=== PATIENT | female | born 1945 | race Caucasian/White ===

== ENCOUNTER → 2023-10-14 14:10 | Outpatient (REF) | payer MEDICARE, OTHER, SELFPAY ==
[2023-10-18 01:08] LABS: Calprotectin, Fecal 76 ug/g (<=49)
== END ==
LOC: REG 14:10
PROVIDERS: ATTENDING PHYSICIAN Internal Medicine; FAMILY PHYSICIAN Family Medicine
DX: R10.84 Generalized abdominal pain (principal); K59.00 Constipation, unspecified
CPT/HCPCS: 83993; 87328; 87329

== ENCOUNTER → 2023-12-24 15:04 | Outpatient (REF) | payer MEDICARE, OTHER, SELFPAY ==
[2023-12-24 17:58] LABS: Creatine Phosphokinase 74 U/L (30-135)
[2023-12-24 18:28] LABS: TSH 0.63 uIU/ml (0.47-4.68)
[2023-12-24 22:43] LABS: HIV Combo Negative (Negative)
[2023-12-26 23:38] LABS: Aldolase 2.6 U/L (1.2-7.6)
[2023-12-28 12:09] LABS: Albumin 4.13 g/dL (3.75-5.01); Alpha 1 Globulin 0.27 g/dL (0.19-0.46); Alpha 2 Globulin 0.71 g/dL (0.48-1.05); SPEP IFE Reflex Not Done
[2023-12-28 16:12] LABS: Lyme Antibody Screen, EIA Negative (Negative)
== END ==
LOC: REG 15:04
PROVIDERS: ATTENDING PHYSICIAN Psychiatry & Neurology Neurology; FAMILY PHYSICIAN Family Medicine
DX: G62.9 Polyneuropathy, unspecified (principal); E78.5 Hyperlipidemia, unspecified
CPT/HCPCS: 36415; 82085; 82550; 84155; 84165; 84443; 86618; 87389

== ENCOUNTER → 2024-01-07 13:01 | Outpatient (REF) | payer MEDICARE, OTHER, SELFPAY ==
[2024-01-07 16:00] LABS: Blood Urea Nitrogen 16 mg/dl (7-17); Glucose 113 mg/dl (70-99)
[2024-01-07 16:01] LABS: ALT (SGPT) 22 U/L (0-35); AST (SGOT) 33 U/L (14-36); Albumin 4.7 g/dl (3.5-5.0); Alkaline Phosphatase 71 U/L (38-126); Calcium 10.4 mg/dl (8.4-10.2); Carbon Dioxide 30 mmol/L (22-30); Chloride 100 mmol/L (98-107); Potassium 4.3 mmol/L (3.5-5.1); Sodium 139 mmol/L (135-145); Total Bilirubin 0.7 mg/dl (0.2-1.3); Total Protein 7.7 g/dl (6.3-8.2); eGFR > 60.00
== END ==
LOC: REG 13:01
PROVIDERS: ATTENDING PHYSICIAN Internal Medicine Rheumatology; FAMILY PHYSICIAN Family Medicine
DX: E55.9 Vitamin D deficiency, unspecified (principal)
CPT/HCPCS: 36415; 80053; 82306

== ENCOUNTER → 2024-03-14 09:45 | Outpatient (REF) | payer MEDICARE, OTHER, SELFPAY | LOC: HWRAD 09:45 | PROVIDERS: ATTENDING PHYSICIAN Internal Medicine Rheumatology; FAMILY PHYSICIAN Family Medicine | DX: M81.0 Age-related osteoporosis without current pathological fracture (principal) | CPT/HCPCS: 77080 ==

== ENCOUNTER 2024-03-30 10:55 | Emergency (ER) | payer MEDICARE, OTHER, SELFPAY ==
[2024-03-30 11:06] VITALS: BP 138/81
--- NOTE | 2024-03-30 11:53 | ED.GENMED ---
History of Present Illness
General
Chief Complaint: Urinary Symptoms
Source: patient
Exam Limitations: none
Time Seen by Provider: 03/30/24 11:39
Nursing documentation reviewed up to this point in time: agreed with
History of Present Illness
History of Present Illness:
Patient is a 78-year-old female presenting to the emergency department for evaluation of urinary symptoms. Patient states that she has been noticing dysuria, urinary frequency, and mild suprapubic pain over the past 3 days. She also noticed some
mild lower back pain. Patient denies any fevers, chills, hematuria. No nausea, vomiting, weakness. Patient denies any abnormal vaginal bleeding or discharge
Patient does state that she has been dealing with frequent UTI symptoms over the past year with most recent treated UTI approximately 1 month ago. She was treated with 5 days of Macrobid with improvement in symptoms. Patient states does feel
similar to prior UTI.
Patient is not sexually active. No history of STDs. She did see an [facility] [facility] about a year ago with a normal pelvic exam and Pap smear.
Review of Systems
Review of Systems
Allergies reviewed?: Yes
All Other Systems: ROS reviewed and negative except as documented in HPI and ROS
Phy Exam
Physical Exam
Physical Exam:
Vitals: Patient's vital signs are stable. Afebrile
General: Patient is well appearing, no acute distress. Nontoxic-appearing
Skin: Warm and dry, no rashes or lesions
Head: Normocephalic, atraumatic
Eyes: Sclera nonicteric. EOMs intact. No nystagmus.
Throat: Protecting airway
Neck: Normal ROM, no cervical spine tenderness, no meningismus
Cardiac: Regular rate and rhythm, no murmurs.
Pulm: Normal respiratory effort, no wheezes, rales, rhonchi heard on exam.
Abdomen: Abdomen soft. Mild suprapubic abdominal tenderness without rebound tenderness or guarding. No CVA tenderness
Extremities: No evidence of cyanosis or edema. Great distal pulses
Neuro: AAOx3. CN II-XII intact. No focal neurologic deficits.
Psychiatric: Normal affect.
Course
Orders/Labs/Results
Orders:
Orders
03/30/24 11:18
Urinalysis Reflex To Culture Urgent
Date Specimen was Collected: 03/30/24
Time Specimen was Collected: 11:11
03/30/24 12:18
US Renal Only W/O Bladder Urgent
Comment:
Reason For Exam: frequent dysuria, b/l flank pain
Vital Signs
Initial and Last Documented VS:
Initial Vital Signs
Temp Pulse Resp BP Pulse Ox
98.0 F 95 18 138/81 96
03/30/24 11:06 03/30/24 11:06 03/30/24 11:06 03/30/24 11:06 03/30/24 11:06
Last Documented Vital Signs
Temp Pulse Resp BP Pulse Ox
98.0 F 76 19 131/79 99
03/30/24 11:06 03/30/24 14:32 03/30/24 14:32 03/30/24 14:32 03/30/24 14:32
MDM/Problems Addressed
Differential Diagnosis Includes:
Not limited to: UTI, pyelonephritis, kidney stone, interstitial cystitis
MDM/Problems Addressed:
Patient is a 78-year-old female with history somewhat frequent UTIs over the past year presenting with 3 days of dysuria and mild suprapubic pain. No fevers or chills. No nausea or vomiting. No abnormal vaginal bleeding or discharge. Vital signs
are stable�patient is afebrile. Physical exam as above. Patient is well-appearing, nontoxic appearing. Abdomen is soft with very mild suprapubic tenderness. No CVA tenderness. Urinalysis was obtained which shows no evidence of infection or
hematuria. Did obtain renal ultrasound as well which showed no evidence of acute abnormality. Patient remains well-appearing with normal vital signs the emergency department. Low suspicion for UTI given clear urinalysis although given persistent
symptoms will send course Keflex for patient to start in a few days if symptoms persist.
Given persistence of vague dysuria and frequent negative UTIs�it is possible patient may have chronic conditions such as interstitial cystitis. She will be referred to a urogynecologist for further evaluation/management. Return precautions
discussed with patient at length. She will also follow-up with her primary care. All questions answered
Chronic conditions affecting care:
Frequent UTIs
Acute Exacerbation and/or Progression of Chronic Illness:
N/A
*Radiology
Radiology exam reviewed: radiology read reviewed
*Pulse Oximetry
Patient hypoxic: no
*EKG
Interpreted by ED Provider?: NA
*Ladies' Hat Trimmer Interpretation
Rate: Ladies' Hat Trimmer- N/A
*Critical Care Note
Total Time (30-74mins, 75-104mins- exclusive of procedures): Not Applicable
ED Attending Note
-
Portions of this chart may have been created with voice recognition software.� Occasional wrong word or��sound alike� substitutions may have occurred due to the inherent limitations of voice recognition software.
Discharge Plan
Departure
Patient Disposition: Home (Routine Discharge)
Date of Disposition: 03/30/24
Time of Disposition: 14:18
Patient with high blood pressure during this ER visit?: No
Condition: Good
Covid-19: Not Applicable
Discharge Problem:
Dysuria
Prescriptions:
New
cephalexin 250 mg capsule
250 mg PO BID 5 Days Qty: 10 0RF
No Action
atorvastatin 20 MG tablet
20 mg PO QPM
metronidazole [MetroCream] 1 APPLIC cream
1 applic topical DAILY
psyllium husk (aspartame) [Metamucil Fiber Singles] 1 PACKET powder in packet
1 packet PO PRN PRN (Reason: stool)
denosumab [Prolia] 60 MG/ML syringe
60 mg SQ .Q6M
multivitamin with folic acid [Tab-A-Tonia] 1 TABLET tablet
1 tab PO DAILY
fluticasone furoate-vilanterol [Breo Ellipta] 1 EACH blister with device
1 ea IH PRN PRN (Reason: SOB)
calcium phosphate-vitamin D3 1 EACH tablet,chewable
1 ea PO DAILY
magnesium hydroxide [Dulcolax (magnesium hydroxide)] 400 MG/5 ML suspension
400 mg PO PRN PRN (Reason: stool)
diphenhydramine HCl [Sleep Aid (diphenhydramine)] 25 MG tablet
25 mg PO HS PRN (Reason: sleep)
sennosides [senna] 1 TABLET tablet
2 tab PO BID 0RF
prochlorperazine maleate 5 MG tablet
5 mg PO Q6HPRN PRN (Reason: nausea) Qty: 30 0RF
diazepam 2 MG tablet
2 mg PO BID Qty: 14 0RF
docusate sodium 100 MG capsule
100 mg PO BID 0RF
tramadol 50 MG tablet
50 mg PO Q6HPRN PRN (Reason: moderate-severe pain) Qty: 30 0RF
Rx Instructions:
Dx laminectomy
ongoing therapy
aspirin [Lo-Dose Aspirin] 81 MG tablet,delayed release (DR/EC)
81 mg PO DAILY Qty: 0 0RF
Rx Instructions:
resume 08/26
[id number] [Excedrin Extra Strength] 1 EACH tablet
2 ea PO BID PRN (Reason: pain) Qty: 0 0RF
Rx Instructions:
resume 12/13
famotidine 20 MG tablet
20 mg PO HS Qty: 30 0RF
prednisone 10 MG tablet
40 mg PO TAPER Qty: 10 0RF
Rx Instructions:
4 tab(40mg) day 1, 3 tabs(30mg) day 2, 2 tabs(20mg) day3,
1 tab (10mg) day 4, then stop
Referrals:
Kishore Conti MD [Family Provider] -
Alessia Chong, [Active] - Next open appointment
Activity Restrictions/Additional Instructions:
- Return to the emergency department with any fevers, chills, severe abdominal pain, severe back pain, intractable nausea/vomiting, blood in your urine, worsening in current symptoms, or any other concerns
-As discussed�your urinalysis showed no signs of infection today. I have given you a prescription for an antibiotic that you can begin in 2 to 3 days if you are not noticing any improvement.
-It is important to stay well-hydrated.
-You should follow-up with your primary care provider and urologist for further evaluation/management. It is important to monitor your symptoms closely return to the emergency department any acute worsening/new symptoms
Interventions
Interventions:
*Risk Screen - Suicide Last Done: 03/30/24 12:39
*General Assessment Last Done: 03/30/24 12:39
*Neglect/Abuse Screening Last Done: 03/30/24 12:39
*ED COVID-19 Vaccine History Last Done: 03/30/24 12:39
*Nursing Disposition Last Done: 03/30/24 14:32
ED-Female Genitourinary Assessment Last Done: 03/30/24 12:39
Discharge Date and Time
Discharge Date/Time: 03/30/24 14:33
Print Language: KHMER
[2024-03-30 12:22] LABS: Urine Albumin Negative (Neg - Trace); Urine Bilirubin Negative (Negative); Urine Character Clear (Clear); Urine Color Yellow; Urine Glucose Negative (Negative); Urine Ketone Negative (Negative); Urine Leukocyte Negative (Negative); Urine Nitrite Negative (Negative); Urine Occult Blood Negative (Negative); Urine Specific Gravity 1.005 (<1.030); Urine Urobilinogen Negative (Neg - 1+)
[2024-03-30 13:58] VITALS: BP 134/76
[2024-03-30 14:30] VITALS: BP 131/79
[2024-03-30 14:32] VITALS: BP 131/79
== END 2024-03-30 14:33 | disposition home or self-care (01) ==
LOC: EMR 10:55
PROVIDERS: EMERGENCY PHYSICIAN Emergency Medicine; FAMILY PHYSICIAN Family Medicine
DX: R30.0 Dysuria (principal); R10.2 Pelvic and perineal pain; R35.0 Frequency of micturition; R39.15 Urgency of urination; M54.50 Low back pain, unspecified; Z87.440 Personal history of urinary (tract) infections; Z88.1 Allergy status to other antibiotic agents
CPT/HCPCS: 99284; 76775; 81003

== ENCOUNTER → 2024-05-17 12:20 | Outpatient (REF) | payer MEDICARE, OTHER, SELFPAY ==
[2024-05-17 13:30] LABS: % Basophils 0.8 % (0-2); % Eosinophils 0.5 % (0-6); % Immature Granulocytes 0.2 % (0-0.5); % Lymphocytes 13.8 % (20.5-51.1); % Monocytes 8.1 % (1.7-9.3); % Neutrophils 76.6 % (42.2-75.2); Absolute Basophils 0.1 10^3/uL (0-0.2); Absolute Lymphocytes 0.8 10^3/uL (1.2-3.4); Absolute Monocytes 0.5 10^3/uL (0.1-0.6); Absolute Neutrophils 4.6 10^3/uL (1.4-6.5); Hematocrit 42.9 % (37.0-47.0); Hemoglobin 14.1 g/dL (12.0-16.0); Mean Corp Hgb Conc. 32.9 g/dL (33.0-37.0); Mean Corpuscular Hgb 29.9 pg (27.0-31.0); Mean Corpuscular Volume 90.9 fL (81.0-99.0); Mean Platelet Volume 10.3 fL (7.4-10.4); Nucleated Red Blood Cells % 0 %; Platelet Count 305 10^3/uL (130-400); Red Blood Cell Count 4.72 10^6/uL (4.20-5.40); Red Cell Dist. Width 15.1 % (11.5-14.5); White Blood Cell Count 5.9 10^3/uL (4.8-10.8)
[2024-05-17 14:24] LABS: Erythrocyte Sed Rate 11 mm/hour (0-20)
[2024-05-17 14:25] LABS: ALT (SGPT) 29 U/L (0-35); AST (SGOT) 35 U/L (14-36); Albumin 4.4 g/dl (3.5-5.0); Alkaline Phosphatase 55 U/L (38-126); Blood Urea Nitrogen 14 mg/dl (7-17); Calcium 9.8 mg/dl (8.4-10.2); Carbon Dioxide 31 mmol/L (22-30); Chloride 98 mmol/L (98-107); Glucose 82 mg/dl (70-99); Potassium 4.5 mmol/L (3.5-5.1); Sodium 138 mmol/L (135-145); Total Bilirubin 0.6 mg/dl (0.2-1.3); Total Protein 6.9 g/dl (6.3-8.2); eGFR > 60.00
[2024-05-17 14:45] LABS: Vitamin D, 25-OH*** 38.2 ng/mL (30-80)
[2024-05-17 14:49] LABS: C-Reactive Protein < 5.00 mg/L (0.0-10.00)
[2024-05-17 14:59] LABS: TSH 0.36 uIU/ml (0.47-4.68)
[2024-05-19 02:34] LABS: Complement C3 115 mg/dl (88-165)
[2024-05-20 00:29] LABS: ANA, IgG Reflex to HEp-2 None Detected (None Detected)
[2024-05-20 01:33] LABS: SSA 52 (Ro)(ENA) Ab, IgG 4 AU/mL (0-40); SSA 60 (Ro)(ENA) Ab, IgG 0 AU/mL (0-40); SSB (La)(ENA) Ab, IgG 3 AU/mL (0-40)
== END ==
LOC: REG 12:20
PROVIDERS: ATTENDING PHYSICIAN Internal Medicine Rheumatology; FAMILY PHYSICIAN Family Medicine
DX: E07.9 Disorder of thyroid, unspecified (principal); E55.9 Vitamin D deficiency, unspecified; M79.18 Myalgia, other site; M81.0 Age-related osteoporosis without current pathological fracture
CPT/HCPCS: 36415; 80053; 82306; 84443; 85025; 85652; 86038; 86140; 86160; 86235

== ENCOUNTER 2024-06-10 06:45 | Outpatient (RCR) | payer MEDICARE, OTHER, SELFPAY | END 2024-06-10 23:59 | disposition home or self-care (01) | LOC: RPT 06:45 | PROVIDERS: ATTENDING PHYSICIAN Urology; FAMILY PHYSICIAN Family Medicine | DX: N30.10 Interstitial cystitis (chronic) without hematuria (principal); M62.89 Other specified disorders of muscle; N39.41 Urge incontinence; N39.3 Stress incontinence (female) (male); Z73.6 Limitation of activities due to disability; M62.81 Muscle weakness (generalized); R42 Dizziness and giddiness; M54.9 Dorsalgia, unspecified | CPT/HCPCS: 97163; 97530 ==

== ENCOUNTER → 2024-06-24 12:34 | Outpatient (REF) | payer MEDICARE, OTHER, SELFPAY | LOC: HWWDC 12:34 | PROVIDERS: ATTENDING PHYSICIAN Family Medicine | DX: Z12.31 Encounter for screening mammogram for malignant neoplasm of breast (principal) | CPT/HCPCS: 77063; 77067 ==

== ENCOUNTER → 2024-06-28 15:21 | Outpatient (REF) | payer MEDICARE, OTHER, SELFPAY ==
[2024-06-28 17:10] LABS: Free T4 0.98 ng/dl (0.78-2.19)
[2024-06-28 17:23] LABS: TSH 1.07 uIU/ml (0.47-4.68)
[2024-06-30 16:18] LABS: Thyroglobulin Antibodies <0.9 IU/mL (0.0-4.0); Thyroid Peroxidase Ab (TPO) 0.3 IU/mL (0.0-9.0)
== END ==
LOC: REG 15:21
PROVIDERS: ATTENDING PHYSICIAN Family Medicine
DX: E05.90 Thyrotoxicosis, unspecified without thyrotoxic crisis or storm (principal)
CPT/HCPCS: 36415; 84439; 84443; 86376; 86800

== ENCOUNTER 2024-07-14 14:55 | Outpatient (RCR) | payer MEDICARE, OTHER, SELFPAY | END 2024-07-14 23:59 | disposition home or self-care (01) | LOC: RPT 14:55 | PROVIDERS: ATTENDING PHYSICIAN Urology; FAMILY PHYSICIAN Family Medicine | DX: N30.10 Interstitial cystitis (chronic) without hematuria (principal); M62.89 Other specified disorders of muscle; N39.41 Urge incontinence; N39.3 Stress incontinence (female) (male) | CPT/HCPCS: 97110; 97112; 97140; 97530 ==

== ENCOUNTER → 2024-07-14 16:33 | Outpatient (REF) | payer MEDICARE, OTHER, SELFPAY ==
[2024-07-14 19:03] LABS: Folate > 20.0 ng/ml (2.76-20); Vitamin B12 959 pg/ml (239-931)
[2024-07-15 10:19] LABS: Glycohemoglobin (HgbA1c) 5.4 % (4.0-5.6)
[2024-07-17 10:06] LABS: Zinc 56.2 ug/dL (60.0-120.0)
== END ==
LOC: REG 16:33
PROVIDERS: FAMILY PHYSICIAN Family Medicine
DX: G62.9 Polyneuropathy, unspecified (principal); R79.9 Abnormal finding of blood chemistry, unspecified; D51.9 Vitamin B12 deficiency anemia, unspecified
CPT/HCPCS: 36415; 82525; 82607; 82746; 83036; 84630

== ENCOUNTER 2024-07-18 13:00 | Outpatient (RCR) | payer MEDICARE, OTHER, SELFPAY | END 2024-07-18 23:59 | disposition home or self-care (01) | LOC: RPT 13:00 | PROVIDERS: ATTENDING PHYSICIAN Urology; FAMILY PHYSICIAN Family Medicine | DX: N30.10 Interstitial cystitis (chronic) without hematuria (principal); M62.89 Other specified disorders of muscle; N39.41 Urge incontinence; N39.3 Stress incontinence (female) (male); Z73.6 Limitation of activities due to disability | CPT/HCPCS: 97110; 97112; 97530 ==

== ENCOUNTER 2024-09-01 07:36 | Outpatient (RCR) | payer MEDICARE, OTHER, SELFPAY | END 2024-09-08 07:45 | disposition home or self-care (01) | LOC: RPT 07:36 | PROVIDERS: ATTENDING PHYSICIAN Urology; FAMILY PHYSICIAN Family Medicine | DX: N30.10 Interstitial cystitis (chronic) without hematuria (principal); M62.89 Other specified disorders of muscle; N39.41 Urge incontinence; N39.3 Stress incontinence (female) (male); Z73.6 Limitation of activities due to disability | CPT/HCPCS: 97140; 97530 ==

== ENCOUNTER 2024-11-11 14:10 | Outpatient (RCR) | payer MEDICARE, OTHER, SELFPAY | END 2024-11-11 23:59 | disposition home or self-care (01) | LOC: RPT 14:10 | PROVIDERS: ATTENDING PHYSICIAN Urology; FAMILY PHYSICIAN Family Medicine | DX: N30.10 Interstitial cystitis (chronic) without hematuria (principal); M62.89 Other specified disorders of muscle; N32.81 Overactive bladder; G60.3 Idiopathic progressive neuropathy; M62.81 Muscle weakness (generalized); Z73.6 Limitation of activities due to disability | CPT/HCPCS: 97110; 97140; 97163; 97530 ==

== ENCOUNTER 2024-12-01 12:55 | Outpatient (RCR) | payer MEDICARE, OTHER, SELFPAY | END 2024-12-01 23:59 | disposition home or self-care (01) | LOC: RPT 12:55 | PROVIDERS: ATTENDING PHYSICIAN Urology; FAMILY PHYSICIAN Family Medicine | DX: N30.10 Interstitial cystitis (chronic) without hematuria (principal); M62.89 Other specified disorders of muscle; N32.81 Overactive bladder; G60.3 Idiopathic progressive neuropathy; M62.81 Muscle weakness (generalized); Z73.6 Limitation of activities due to disability | CPT/HCPCS: 97112; 97140; 97530 ==

== ENCOUNTER 2024-12-13 11:56 | Outpatient (RCR) | payer MEDICARE, OTHER, SELFPAY | END 2024-12-14 07:28 | disposition home or self-care (01) | LOC: RPT 11:56 | PROVIDERS: ATTENDING PHYSICIAN Urology; FAMILY PHYSICIAN Family Medicine | DX: N30.10 Interstitial cystitis (chronic) without hematuria (principal); M62.89 Other specified disorders of muscle; N32.81 Overactive bladder; G60.3 Idiopathic progressive neuropathy; M62.81 Muscle weakness (generalized); Z73.6 Limitation of activities due to disability | CPT/HCPCS: 97140; 97530 ==

== ENCOUNTER → 2025-01-09 12:06 | Outpatient (REF) | payer MEDICARE, OTHER, SELFPAY | LOC: REG 12:06 | PROVIDERS: ATTENDING PHYSICIAN Psychiatry & Neurology Neurology; FAMILY PHYSICIAN Family Medicine | DX: G62.9 Polyneuropathy, unspecified (principal); G60.9 Hereditary and idiopathic neuropathy, unspecified | CPT/HCPCS: 36415; 84207; 84425 ==

== ENCOUNTER → 2025-01-31 08:53 | Outpatient (REF) | payer MEDICARE, OTHER, SELFPAY | LOC: HWEVLT 08:53 | PROVIDERS: ATTENDING PHYSICIAN Radiology Vascular & Interventional Radiology | DX: I83.893 Varicose veins of bilateral lower extremities with other complications (principal) | CPT/HCPCS: 93970 ==

== ENCOUNTER → 2025-02-21 14:37 | Outpatient (REF) | payer MEDICARE, OTHER, SELFPAY | LOC: RAD 14:37 | PROVIDERS: ATTENDING PHYSICIAN Family Medicine | DX: R25.2 Cramp and spasm (principal) | CPT/HCPCS: 93925 ==

== ENCOUNTER → 2025-03-22 07:53 | Outpatient (REF) | payer MEDICARE, OTHER, SELFPAY ==
[2025-03-22 10:00] LABS: HDL Cholesterol 74 mg/dl; LDL Cholesterol, Calculated 69 mg/dl; Very Low Density Lipoprotein 16 mg/dl (0-30)
[2025-03-25 01:17] LABS: SSA 52 (Ro)(ENA) Ab, IgG 2 AU/mL (0-40); SSA 60 (Ro)(ENA) Ab, IgG 0 AU/mL (0-40); SSB (La)(ENA) Ab, IgG 2 AU/mL (0-40)
== END ==
LOC: REG 07:53
PROVIDERS: ATTENDING PHYSICIAN Family Medicine; FAMILY PHYSICIAN Psychiatry & Neurology Neurology
DX: E78.00 Pure hypercholesterolemia, unspecified (principal); G62.9 Polyneuropathy, unspecified
CPT/HCPCS: 36415; 80061; 86235

== ENCOUNTER → 2025-04-10 11:09 | Outpatient (REF) | payer MEDICARE, OTHER, SELFPAY ==
[2025-04-10 12:21] LABS: Hematocrit 42.9 % (37.0-47.0); Hemoglobin 13.7 g/dL (12.0-16.0); Mean Corp Hgb Conc. 31.9 g/dL (33.0-37.0); Mean Corpuscular Volume 93.3 fL (81.0-99.0); Nucleated Red Blood Cells % 0 %; Platelet Count 251 10^3/uL (130-400); Red Cell Dist. Width 14.1 % (11.5-14.5)
[2025-04-10 13:24] LABS: ALT (SGPT) 19 U/L (0-35); AST (SGOT) 25 U/L (14-36); Albumin 4.3 g/dl (3.5-5.0); Alkaline Phosphatase 39 U/L (38-126); Blood Urea Nitrogen 15 mg/dl (7-17); Calcium 9.2 mg/dl (8.4-10.2); Carbon Dioxide 32 mmol/L (22-30); Chloride 100 mmol/L (98-107); Glucose 70 mg/dl (70-99); Potassium 4.1 mmol/L (3.5-5.1); Sodium 136 mmol/L (135-145); Total Protein 6.8 g/dl (6.3-8.2); eGFR > 60.00
[2025-04-10 13:50] LABS: TSH 0.47 uIU/ml (0.47-4.68)
== END ==
LOC: REG 11:09
PROVIDERS: ATTENDING PHYSICIAN Physician Assistant; FAMILY PHYSICIAN Family Medicine
DX: L29.89 Other pruritus (principal); I69.359 Hemiplegia and hemiparesis following cerebral infarction affecting unspecified side; E78.5 Hyperlipidemia, unspecified
CPT/HCPCS: 36415; 80053; 82248; 84155; 84165; 84439; 84443; 85025

== ENCOUNTER → 2025-06-21 14:39 | Outpatient (REF) | payer MEDICARE, OTHER, SELFPAY | LOC: RCS 14:39 | PROVIDERS: ATTENDING PHYSICIAN Internal Medicine Cardiovascular Disease; FAMILY PHYSICIAN Family Medicine | DX: R07.89 Other chest pain (principal); R06.09 Other forms of dyspnea | CPT/HCPCS: 93306 ==

== ENCOUNTER → 2025-07-13 15:15 | Outpatient (REF) | payer MEDICARE, OTHER, SELFPAY | LOC: PAVMRI 15:15 | PROVIDERS: ATTENDING PHYSICIAN Specialist; FAMILY PHYSICIAN Family Medicine | DX: M54.16 Radiculopathy, lumbar region (principal); M54.12 Radiculopathy, cervical region | CPT/HCPCS: 72141; 72148 ==

== ENCOUNTER → 2025-07-20 15:19 | Outpatient (REF) | payer MEDICARE, OTHER, SELFPAY ==
[2025-07-20 16:00] LABS: Hematocrit 46.4 % (37.0-47.0); Hemoglobin 14.3 g/dL (12.0-16.0); Mean Corp Hgb Conc. 30.8 g/dL (33.0-37.0); Mean Corpuscular Volume 95.7 fL (81.0-99.0); Nucleated Red Blood Cells % 0 %; Platelet Count 238 10^3/uL (130-400); Red Cell Dist. Width 14.5 % (11.5-14.5)
[2025-07-20 16:24] LABS: ALT (SGPT) 24 U/L (0-35); AST (SGOT) 32 U/L (14-36); Albumin 4.5 g/dl (3.5-5.0); Alkaline Phosphatase 36 U/L (38-126); Blood Urea Nitrogen 15 mg/dl (7-17); Calcium 9.6 mg/dl (8.4-10.2); Carbon Dioxide 32 mmol/L (22-30); Chloride 100 mmol/L (98-107); Glucose 91 mg/dl (70-99); Sodium 137 mmol/L (135-145); Total Protein 7.1 g/dl (6.3-8.2); eGFR > 60.00
[2025-07-20 16:32] LABS: Potassium 4.5 mmol/L (3.5-5.1)
[2025-07-20 16:55] LABS: TSH 0.61 uIU/ml (0.47-4.68)
[2025-07-23 10:08] LABS: Albumin 4.15 g/dL (3.75-5.01); SPEP IFE Reflex Not Done; Total Protein-Electrophoresis 6.7 g/dL (6.3-8.2)
== END ==
LOC: REG 15:19
PROVIDERS: ATTENDING PHYSICIAN Physician Assistant; FAMILY PHYSICIAN Family Medicine
DX: L29.89 Other pruritus (principal); I69.359 Hemiplegia and hemiparesis following cerebral infarction affecting unspecified side; E78.5 Hyperlipidemia, unspecified
CPT/HCPCS: 36415; 80053; 82248; 84155; 84165; 84439; 84443; 85025